=== PATIENT | male | born 1995 | race Caucasian/White ===

== ENCOUNTER 2019-03-15 11:04 | Day surgery (SDC) | payer OTHER ==
[2019-03-15 12:05] VITALS: BMI 22.1
[2019-03-15] MEDS ORDERED: MIDAZOLAM HCL 2 MG/2 ML SINGLE DOSE VIAL ONE (12:34)
[2019-03-15 13:12] VITALS: TEMP 97.5
[2019-03-15 13:46] VITALS: BP 116/68; PULSE 67
--- NOTE | 2019-03-16 18:07 | PATH ---
Surgical Pathology Report Patient Name: DORIS GEORGE [facility]. Rec. #: [id number] /Age/Gender: 1995 (Age: 24) / M Account: [id number] Location: U-ENDOSCOPY Taken: 03/15/2019 Received: 03/15/2019 Reported: 03/16/2019 Physicians: Ronak Miranda D.O. Specimen(s) Received ANGULARIS AND BODY Clinical History Upper abdominal pain Postoperative diagnosis: Gastritis Final Diagnosis STOMACH, ANGULARIS AND BODY, BIOPSY: GASTRIC BODY MUCOSA WITH MILD CHRONIC GASTRITIS. IMMUNOHISTOCHEMICAL STAIN FOR H. PYLORI IS NEGATIVE. Electronically Signed Jayla Patel M.D. Gross Description Received in formalin, labeled "biopsy angularis and body" are 2 [place], irregular portions of soft tissue measuring 0.3 and 0.4 cm. in greatest dimension. The specimens are submitted in toto in one cassette. /03/15/2019 saudi/03/15/2019
== END 2019-03-15 13:50 | disposition home or self-care (01) ==
LOC: JASU-ENDO 11:04
PROVIDERS: ATTEND Internal Medicine Gastroenterology
PROC: 0DB68ZX Excision of Stomach, Via Natural or Artificial Opening Endoscopic, Diagnostic (ICD-10-PCS; principal; 2019-03-15 12:15)
DX: K29.70 Gastritis, unspecified, without bleeding (principal)
CPT/HCPCS: 88305-TC; 88342-TC